=== PATIENT | male | born 1945 | race African-American/Black ===

== ENCOUNTER 2020-07-04 17:20 | Emergency (ER) | payer MEDICARE, OTHER ==
[~2020-07-04] VITALS: Ht 177.8 cm; Wt 79.4 kg
--- NOTE | 2020-07-04 17:29 | Emergency Room Report ---
History of Present Illness General Chief Complaint: Behavioral Complaint Source: EMS Present Illness HPI Disclaimer: Please note that this report is being documented using [employer] technology. This can lead to erroneous entry secondary to incorrect interpretation by the dictating instrument. HPI: 75-year-old male history of atrial fibrillation status post pacemaker, hypertension, hyperlipidemia, unspecified psychiatric disorder presents for evaluation of altered mental status and tachycardia. EMS were called by friend of the patient stated he was behaving abnormally. Patient admits that he has not been taking any medications including his Abilify or his rate controlling medications for atrial fibrillation which he cannot recall the name of. He denies chest pain or shortness of breath. Denies headache or head injury. He currently believes he was at a bank but is somewhat redirectable. His history is tangential though is not complaining of any pain or discomfort at this time. He denies cough shortness of breath or fever. Denies recent COVID-19 testing. PMH: Atrial fibrillation, hypertension, psych disorder, hyperlipidemia PSH: Pacemaker Allergies: Reviewed Social Hx: Reviewed Allergies: Coded Allergies: No Known Allergies (Unverified , 07/04/20) COVID-19 Screening Contact w/high risk pt: No Experienced COVID-19 symptoms?: No COVID-19 Testing performed PATIENT FLOW COORDINATOR: No Nursing Documentation-PMH Hx Cardiac Problems: Yes Hx Hypertension: Yes History Of Psychiatric Problem: Yes Review of Systems All Other Systems: negative except mentioned in HPI Physical Exam Vital Signs Date Time Temp Pulse Resp B/P (MAP) Pulse Ox O2 Delivery O2 Flow Rate FiO2 07/04/20 17:18 97.2 120 19 188/100 (129) 98 Room Air General: Awake and alert, no acute distress HEENT: NC/AT. EOMI. Chest wall: Palpable pacemaker in left upper chest. Cardiovascular: Tachycardic. S1 and S2 normal. No murmur appreciated Resp: Normal work of breathing. No cough, wheezing or crackles appreciated Abdomen: Abdomen is soft, nondistended. Nontender Skin: Intact. No abrasions, laceration or rash over the exposed skin MSK: Normal tone and bulk. Moving all extremities. No obvious deformity. Neuro: Awake and alert. Thinking is tangential. Fixated on a bank. Denies SI/HI. Poor historian. Medical Decision Making Diagnostic Impression: Primary Impression: AMS (altered mental status) Additional Impressions: Elevated troponin Rapid atrial fibrillation ER Course 75-year-old male presents for evaluation of altered mental status. He also arrives tachycardic. Noncompliant with his medications. Patient arrives in what appears to be rapid atrial fibrillation though a tachycardic rate with aberrant conduction was also possible. Given Cardizem IV and oral which has now controlled his heart rate. Labs show slightly elevated troponin. Patient received aspirin. Other labs are largely within normal limits. Patient unable to give urine. He remains somewhat altered and confused. He will require admission. He has been accepted at [facility]. Will arrange transport. Laboratory Tests Test 07/04/20 18:15 White Blood Count 7.6 K/UL (4.8-10.8) Red Blood Count 4.64 M/UL (4.70-6.10) L Hemoglobin 14.4 G/DL (14.2-18.0) Hematocrit 43.5 % (42.0-52.0) Mean Corpuscular Volume 94 FL (80-99) Mean Corpuscular Hemoglobin 31.1 PG (27.0-31.0) H Mean Corpuscular Hemoglobin Concent 33.2 G/DL (32.0-36.0) Red Cell Distribution Width 12.4 % (11.6-14.8) Platelet Count 177 K/UL (150-450) Mean Platelet Volume 12.3 FL (6.5-10.1) H Neutrophils (%) (Auto) 67.8 % (45.0-75.0) Lymphocytes (%) (Auto) 18.9 % (20.0-45.0) L Monocytes (%) (Auto) 10.5 % (1.0-10.0) H Eosinophils (%) (Auto) 1.2 % (0.0-3.0) Basophils (%) (Auto) 1.5 % (0.0-2.0) Prothrombin Time 10.8 SEC (9.30-11.50) Prothrombin Time INR 1.0 (0.9-1.1) Activated Partial Thromboplast Time 28 SEC (23-33) Sodium Level 139 MMOL/L (136-145) Potassium Level 3.8 MMOL/L (3.5-5.1) Chloride Level 101 MMOL/L (98-107) Carbon Dioxide Level 28 MMOL/L (21-32) Anion Gap 10 mmol/L (5-15) Blood Urea Nitrogen 12 mg/dL (7-18) Creatinine 1.0 MG/DL (0.55-1.30) Estimated Glomerular Filtration Rate > 60 mL/min (>60) Glucose Level 100 MG/DL (74-106) Calcium Level 9.0 MG/DL (8.5-10.1) Phosphorus Level 3.0 MG/DL (2.5-4.9) Magnesium Level 2.5 MG/DL (1.8-2.4) H Total Bilirubin 1.2 MG/DL (0.2-1.0) H Direct Bilirubin 0.3 MG/DL (0.0-0.3) Aspartate Amino Transferase (AST) 63 U/L (15-37) H Alanine Aminotransferase (ALT) 39 U/L (12-78) Alkaline Phosphatase 100 U/L (46-116) Troponin I 0.058 ng/mL (0.000-0.056) Pro-B-Type Natriuretic Peptide 2094 pg/mL (0-125) H Total Protein 7.7 G/DL (6.4-8.2) Albumin 3.7 G/DL (3.4-5.0) Globulin 4.0 g/dL Albumin/Globulin Ratio 0.9 (1.0-2.7) L Serum Alcohol 3 mg/dL EKG Diagnostic Results Troponin ordered: Yes When was troponin ordered?: Jul 04, 2020 EKG Time: 18:07 Rate: tachycardiac Rhythm: NSR ST Segments: no acute changes Other Impression Indeterminate rhythm, may be atrial fibrillation or sinus tachycardia with PACs. First-degree AV block with [place] interval 222 ms and prolonged QTC of 502 ms. Rhythm Strip Diag. Results Rhythm Strip Time: 18:07 EP Interpretation: yes Rate: 110s Rhythm: no PVC's, no ectopy Chest X-Ray Diagnostic Results Chest X-Ray Diagnostic Results : Chest X-Ray Ordered: Yes # of Views/Limited/Complete: 1 View Indication: Chest Pain EP Interpretation: Yes Interpretation: no consolidation, no effusion, no pneumothorax, other - Cardiomegaly, pacemaker Impression: Other - Cardiomegaly, no obvious infiltrate, pacemaker present Electronically Signed by: Electronically signed by Dr. Alvaro Keane MD Last Vital Signs Date Time Temp Pulse Resp B/P (MAP) Pulse Ox O2 Delivery O2 Flow Rate FiO2 07/04/20 17:18 97.2 120 19 188/100 (129) 98 Room Air Disposition: SHORT-TERM HOSP Condition: Stable Alvaro Keane MD Jul 04, 2020 17:29
[2020-07-04 17:47] VITALS: BP 138/79
[2020-07-04] MEDS: dilTIAZem HCl 60mg tab ORAL ONE ×2 (18:30→18:47)
[2020-07-04] MEDS ORDERED: dilTIAZem HCl 25mg/5ml Inj IVP ONE (18:30)
[2020-07-04 18:37] LABS: BASOPHILS % (AUTO) 1.5 % (0.0-2.0); EOSINOPHILS % (AUTO) 1.2 % (0.0-3.0); HEMATOCRIT 43.5 % (42.0-52.0); HEMOGLOBIN 14.4 G/DL (14.2-18.0); LYMPHOCYTES % (AUTO) 18.9 % (20.0-45.0); MEAN CORPUSCULAR VOLUME 94 FL (80-99); MONOCYTES % (AUTO) 10.5 % (1.0-10.0); NEUTROPHILS % (AUTO) 67.8 % (45.0-75.0); PLATELET COUNT 177 K/UL (150-450); RED BLOOD COUNT 4.64 M/UL (4.70-6.10); RED CELL DISTRIBUTION WIDTH 12.4 % (11.6-14.8); WHITE BLOOD COUNT 7.6 K/UL (4.8-10.8)
[2020-07-04 18:54] LABS: ANION GAP 10 mmol/L (5-15); BLOOD UREA NITROGEN 12 mg/dL (7-18); CARBON DIOXIDE 28 MMOL/L (21-32); CHLORIDE 101 MMOL/L (98-107); POTASSIUM 3.8 MMOL/L (3.5-5.1); SODIUM 139 MMOL/L (136-145)
[2020-07-04 19:08] LABS: ALANINE AMINOTRANSFERASE 39 U/L (12-78); ALBUMIN 3.7 G/DL (3.4-5.0); ALBUMIN/GLOBULIN RATIO 0.9 (1.0-2.7); ALKALINE PHOSPHATASE 100 U/L (46-116); ASPARTATE AMINO TRANSFERASE 63 U/L (15-37); BILIRUBIN,TOTAL 1.2 MG/DL (0.2-1.0)
[2020-07-04 19:18] LABS: BILIRUBIN,DIRECT 0.3 MG/DL (0.0-0.3)
[2020-07-04 19:29] VITALS: BP 137/71
[2020-07-04 22:01] VITALS: BP 141/74
--- NOTE | 2020-07-05 15:30 | Diagnostic Imaging Report ---
Indication: Chest pain Technique: One view of the chest Comparison: none Findings: The heart is enlarged. There is a left chest AICD. The lungs and pleural spaces are clear Impression: No acute process
--- NOTE | 2020-07-08 13:23 | Cardiology Report ---
APPROVED REPORT EKG Measurement Heart [id number] ID [id number] <Conclusion> Sinus tachycardia with 1st degree AV block with premature supraventricular complexes Minimal voltage criteria for LVH, may be normal variant Borderline ECG
== END 2020-07-04 22:01 | disposition short-term general hospital (02) ==
LOC: EDBD 17:20 → EMR 18:18
DX: R41.82 Altered mental status, unspecified (principal); R77.8 Other specified abnormalities of plasma proteins; I48.91 Unspecified atrial fibrillation; I10 Essential (primary) hypertension
CPT/HCPCS: 36415; 71045; 80053; 82248; 83735; 83880; 84100; 84484; 85025; 85610; 85730; 93005; 96374; 99284; G0480